=== PATIENT | male | born 1995 ===

== ENCOUNTER 2020-01-02 09:08 | Outpatient (CLI) | payer OTHER ==
--- NOTE | 2020-01-02 10:48 | ULT ---
RIGHT UPPER QUADRANT ULTRASOUND: HISTORY: A 24-year-old male with right upper quadrant pain. FINDINGS: The liver, gallbladder, and right kidney appear normal. The pancreas is not well visualized due to o verlying bowel gas. The common duct measures 4 mm in diameter. No free fluid is seen in the Morison 's pouch. IMPRESSION: No evidence of cholelithiasis. POS: [facility]
== END 2020-01-02 09:09 | disposition home or self-care (01) ==
LOC: BICULT 09:08
PROVIDERS: ATTEND Internal Medicine Gastroenterology
DX: R10.11 Right upper quadrant pain (principal); R19.7 Diarrhea, unspecified
CPT/HCPCS: 76705